=== PATIENT | male | born 2000 | race Caucasian/White ===

== ENCOUNTER 2020-05-01 09:20 | Day surgery (SDC) | payer OTHER ==
[2020-05-01] MEDS ORDERED: BUPIVACAINE HCL 0.25 % INJ/PF (2.5 MG/1 ML) 30 ML VIAL ONE (10:03)
[2020-05-01] MEDS ORDERED: BUPIVACAINE HCL 0.25 % INJ/PF (2.5 MG/1 ML) 30 ML VIAL INJ PRN (10:12)
[2020-05-01] MEDS ORDERED: MIDAZOLAM 2 MG/2 ML INJ ONE ×2 (10:16→11:26)
[2020-05-01] MEDS ORDERED: BUPIVACAINE HCL 0.5 % INJ/PF 30 ML SDV ONE (10:36)
[2020-05-01] MEDS ORDERED: MIDAZOLAM 2 MG/2 ML INJ IV ONE (11:00)
[2020-05-01] MEDS ORDERED: FENTANYL CITRATE INJ/PF 100 MCG/2 ML AMPUL ONE (11:26)
[2020-05-01] MEDS ORDERED: PROPOFOL INJ 200 MG/20 ML VIAL IV ONE ×2 (11:26→12:45)
[2020-05-01] MEDS ORDERED: CEFAZOLIN 2 GM/D5W RTU 2 GM/50 ML RTUPB IV ONE (11:34)
[2020-05-01] MEDS ORDERED: OXYCODONE-ACETAMINOPHEN 5-325 MG TABLET PO PRN (13:01)
--- NOTE | 2020-05-01 13:09 | Discharge Summary ---
Discharge Summary (SDC) - Discharge Final Diagnosis: Left scaphoid fracture Date of Surgery: 05/01/20 Discharge Date: 05/01/20 Condition: Good Treatment or Instructions: Schedule Follow Up w/ Dr. Kendrick Flores @ [facility] to be seen in 10-14 days or as scheduled [place]: [place]: [place]: Ice and elevate Keep splint clean/dry/intact, do not remove. If your fingers become numb please unwrap the Angel wrap but leave the splint in place, if the sensation does not return within 30 minutes please return to the emergency department. May begin finger range of motion attempting to make full fist. Please use ibuprofen (Motrin or Advil) 600-800 mg every 8 hours as needed for pain or fever DO NOT TAKE w/ TORADOL may use once TORADOL complete. You may also use acetaminophen (Tylenol) 1000 mg every 4-6 hours as needed for pain or fever. Please be aware that many medications contain acetaminophen, do not exceed a total of 1000 mg of acetaminophen every 6 hours. If ibuprofen and acetaminophen are not sufficient for your pain you may take the Percocet/[place]. Please be aware that the Percocet/[place] does contain Tylenol. Stool softener of choice when on pain medication. USE OF XWEX-HDE-MCOWUHY IBUPROFEN: Ibuprofen (Advil, Nuprin, Medipren, Motrin IB) is a medication for fever and pain control. In addition, it has anti- inflammatory effects which may be beneficial, especially in the treatment of injuries. It's best to take ibuprofen with food. Persons with ulcer disease or allergy to aspirin should notify their physician of this before taking ibuprofen. Ibuprofen can be given every four to six hours, for a total of four doses daily. Age Pain or fever dose Antiinflammatory dose 6-8 yr 200 mg (1 tab) 200 mg (1 tab) 9-11 yr 200 mg (1 tab) 200-400 mg (1-2 tab) 11-14 yr 200-400 mg (1-2 tab) 400 mg (2 tab) 15-adult 400 mg (2 tab) 600 mg (3 tab) ORAL NARCOTIC MEDICATION: You have been given a prescription for pain control. This medication is a narcotic. It's best taken with food, as nausea can result if taken on an empty stomach. Don't operate machinery or drive within six hours of taking this medication. Do not combine this medicine with alcohol, or with any medication which can cause sedation (such as cold tablets or sleeping pills) unless you get permission from the physician. Narcotics tend to cause constipation. If possible, drink plenty of fluids and eat a diet high in fiber and fruits. Please be aware that prescription narcotics also have the potential for abuse. People become addicted to these medications because of the general sense of wellbeing that they induce. This feeling along with a significant reduction in tension, anxiety, and aggression provides a stimulating seductive quality to these drugs. Once your pain is under control, we encourage you to discard your unused narcotics. Prescriptions: Oxycodone HCl/Acetaminophen [Percocet 7.5-325 mg Tablet] 1 tab PO Q6 PRN #25 tab PRN Reason: Discharge Diet: As Tolerated Respiratory Treatments at Home: Deep Breathing/Coughing, Incentive Spirometer Discharge Activity: No Driving, No Lifting Over 10 Pounds, No Lifting/Push/Pulling Report the Following to Your Physician Immediately: Fever over 101 Degrees, Unusual Bleeding, Redness, Swelling, Warmth, Increased Soreness
--- NOTE | 2020-05-01 13:16 | Operative Report ---
Operative Report DATE OF SURGERY: 05/01/20 PREOPERATIVE DIAGNOSIS: Displaced left scaphoid waist fracture POSTOPERATIVE DIAGNOSIS: Same OPERATION: Open reduction internal fixation left scaphoid fracture SURGEON: GAEL HENRIQUEZ ANESTHESIA: GA COMPLICATIONS: None ESTIMATED BLOOD LOSS: Minimal PROCEDURE: Indication for above procedure: 20-year-old male who sustained a fall onto his outstretched left wrist. Patient had radiographs and later CT scan confirming displaced scaphoid fracture with humpback deformity. Discussed treatment options with the patient including operative versus nonoperative intervention. Risk and benefits were explained patient verbalized understanding and consented for surgical procedure. Procedure In Detail: Patient was seen and evaluated in the preoperative holding area. The LEFT upper extremity was initialized and marked. Patient received 2g of Ancef IV for bacterial prophylaxis. Patient was taken back to the operative room where transferred to the operative table and placed under general anesthesia. Once they were adequately anesthetized a nonsterile tourniquet was placed on the upper extremity. A surgical team debriefing was performed ensuring all instrumentation was available, the surgical procedure was discussed with possible concerns reviewed. The upper extremity was prepped with chlorhexidine and alcohol and draped in a sterile fashion. A timeout was done identifying correct patient, procedure and extremity everyone in attendance agree with this and verbalized no concerns. The extremity was exsanguinated the tourniquet was inflated to 250 mmHg. Patient's wrist was flexed to 90 degrees and on oscillate a 0.045 K wire was placed across the radiolunate joint. Wrist was then extended reducing the humpback deformity. Dorsal skin incision was then utilized blunt dissection was performed any peripheral veins were coagulated with bipolar cautery. The third dorsal compartment was opened distally and EPL tendon retracted. Fourth dorsal compartment was identified and retracted. T-shaped capsulotomy was made along the scapholunate articulation confirmed with C arm fluoroscopy. The proximal pole of the scaphoid was then identified along with the scapholunate ligament. There is no evidence of scapholunate ligament involvement. With the wrist slightly extended a K wire was placed across the fracture site to obtain reduction and restore scaphoid height and reduce humpback deformity.. C arm fluoroscopy was obtained confirming caodaism of scaphoid height and alig nment. A mini Acutrak K wire was then placed along the center-center position of the scaphoid perpendicular to the fracture. Multiple views including supinated oblique, pronated oblique, AP and lateral views were obtained confirming appropriate placement of the K wire. Once optimal position of the K wire was confirmed with acceptable reduction K wire was measured to be 24 mm and thus a 20 mm screw would be chosen. K wire was then advanced into the trapezium overdrilled with the appropriate size drill bit, proximal aspect was countersunk. A 20 mm mini AccuTrack screw was then placed perpendicular to the fracture. Fragmentary compression was obtained. There is no evidence of screw penetration through the distal articular surface and the screw was adequately countersunk. K wires were then removed. C-arm fluoroscopy was obtained demonstrating acceptable reduction of the fracture there was mild residual humpback deformity. Scaphoid did move as a unit with live fluoroscopy. No evidence of intra-articular screw protrusion. There is no evidence of scapholunate widening with radial and ulnar deviation. Wound was copiously irrigated with normal saline. Capsule was closed with i nterrupted 4-0 FiberWire suture. Deep soft tissues were closed with 3-0 Vicryl suture. Skin was closed with running subcuticular 4-0 Monocryl reinforced with Dermabond and Steri-Strips. Patient was placed in a thumb spica splint. Tourniquet was deflated. Patient had normal peripheral fusion. Sponge, instrument needle counts were correct. No Intra-Op complications patient was well stable to PACU. Postop plan: Patient follow in the office in 2 weeks at which point we will obtain radiographs and transition to thumb spica cast until union is confirmed.
[2020-05-01 15:12] VITALS: BP 113/71
--- NOTE | 2020-05-01 15:58 | RADIOLOGY REPORT (SQ) ---
EXAM DESCRIPTION: WRIST LEFT 3 VIEWS; NO CHG FLUORO IMAGES COMPLETED DATE/TIME: 05/01/2020 1:10 pm REASON FOR STUDY: ORIF LEFT SCAPHOID ASSISTED WITH FLUORO IN OR S62.022A DISP FX OF MIDDLE THIRD OF NAVICULAR BONE OF L WRIS COMPARISON: None. FLUOROSCOPY TIME: 2 minutes 12 seconds fluoroscopy time 8 images saved to PACS. TECHNIQUE: Intra-operative images acquired during surgical procedure to evaluate progress. NUMBER OF IMAGES: 8 images LIMITATIONS: None. FINDINGS: Multiple images demonstrate ORIF in the scaphoid without evidence of hardware complication . IMPRESSION: IMAGE(S) OBTAINED DURING PROCEDURE. COMMENT: Quality ID [id number]: Final reports for procedures using fluoroscopy that document radiation exp osure indices, or exposure time and number of fluorographic images (if radiation exposure indices are not available) Please consult full operative report of the attending physician for description of the procedure. TECHNICAL DOCUMENTATION: JOB ID: [id number] 2010 [employer]- All Rights Reserved Reading location - IP/workstation name: [email or web address]
--- NOTE | 2020-05-01 15:58 | RADIOLOGY REPORT (SQ) ---
EXAM DESCRIPTION: WRIST LEFT 3 VIEWS; NO CHG FLUORO IMAGES COMPLETED DATE/TIME: 05/01/2020 1:10 pm REASON FOR STUDY: ORIF LEFT SCAPHOID ASSISTED WITH FLUORO IN OR S62.022A DISP FX OF MIDDLE THIRD OF NAVICULAR BONE OF L WRIS COMPARISON: None. FLUOROSCOPY TIME: 2 minutes 12 seconds fluoroscopy time 8 images saved to PACS. TECHNIQUE: Intra-operative images acquired during surgical procedure to evaluate progress. NUMBER OF IMAGES: 8 images LIMITATIONS: None. FINDINGS: Multiple images demonstrate ORIF in the scaphoid without evidence of hardware complication . IMPRESSION: IMAGE(S) OBTAINED DURING PROCEDURE. COMMENT: Quality ID [id number]: Final reports for procedures using fluoroscopy that document radiation exp osure indices, or exposure time and number of fluorographic images (if radiation exposure indices are not available) Please consult full operative report of the attending physician for description of the procedure. TECHNICAL DOCUMENTATION: JOB ID: [id number] [address] [employer]- All Rights Reserved Reading location - IP/workstation name: [email or web address]
== END 2020-05-01 15:00 | disposition home or self-care (01) ==
LOC: OROUT 09:20
PROVIDERS: ATTEND Orthopaedic Surgery
DX: S62.022A Displaced fracture of middle third of navicular [scaphoid] bone of left wrist, initial encounter for closed fracture (principal); W19.XXXA Unspecified fall, initial encounter; Y92.69 Other specified industrial and construction area as the place of occurrence of the external cause; F17.210 Nicotine dependence, cigarettes, uncomplicated; Z03.818 Encounter for observation for suspected exposure to other biological agents ruled out
CPT/HCPCS: 87635; 73110; 25628; J2250; J3010; J2704; J0690; C9803; J3490